=== PATIENT | female | born 1950 | race Caucasian/White ===

== ENCOUNTER 2023-09-28 08:34 | Observation (INO) | payer MEDICARE ==
[2023-09-23 11:12] LABS: BASOPHILS # (AUTO) 0.09 K/uL (0.00-0.20); BASOPHILS % (AUTO) 1.2 % (0.0-5.0); EOSINOPHILS # (AUTO) 0.23 K/uL (0.00-0.70); EOSINOPHILS % (AUTO) 3.1 % (0.0-8.0); HEMATOCRIT 45.5 % (36-48); IMMATURE GRANULOCYTE ABSOLUTE 0.02 K/uL (0-1); LYMPHOCYTES # (AUTO) 1.9 K/uL (1.0-4.8); LYMPHOCYTES % (AUTO) 26.1 % (21.0-51.0); MEAN CORPUSCULAR HEMOGLOBIN 29.8 pg (27.0-33.0); MEAN CORPUSCULAR HGB CONC 31.9 g/dL (32.0-36.0); MEAN CORPUSCULAR VOLUME 93.6 fL (79-99); MONOCYTES # (AUTO) 0.5 K/uL (0.1-1.0); MONOCYTES % (AUTO) 7.3 % (3.0-13.0); NEUTROPHILS # (AUTO) 4.6 K/uL (1.8-7.7); PLATELET COUNT (AUTO) 313 K/uL (130-400); RED BLOOD CELL COUNT(AUTO) 4.86 MIL/uL (4.00-5.50); WHITE BLOOD COUNT (AUTO) 7.4 K/uL (4.8-10.8)
[2023-09-23 11:21] VITALS: BP 163/79; PULSE 64; RESP 16
[2023-09-23 11:24] LABS: INR 0.94 (0.85-1.15); PROTHROMBIN TIME 10.9 SEC (9.6-11.6)
[2023-09-23 11:26] LABS: PARTIAL THROMBOPLASTIN TIME 33.1 SEC (26.3-35.5)
[2023-09-23 11:27] LABS: CREATININE 1.3 mg/dL (0.5-1.5); POTASSIUM 5.1 mmol/L (3.5-5.1)
[~2023-09-28] VITALS: Ht 170.2 cm; Wt 125.6 kg
[2023-09-28] VITALS (27 sets, daily range): BP systolic 83–152; BP diastolic 47–88; PULSE 53–82; RESP 12–24; O2SAT 95–98
[~2023-09-28 08:34] MED LIST: ALBU6.7H14 IH; AMLO-258 PO; ASPI-1443 PO; CARV25TA PO; DULO20CA18 PO; LISI40TA9 PO; SPIR25TA6 PO; TRAZ-187 PO; VENL25TA46 PO
[2023-09-28] MEDS: LACTATED RINGERS 1000ML 1,000 ML IV ONE (09:48)
[2023-09-28] MEDS: CLINDAMYCIN IVPB 600MG/50ML 50 ML IV ONE (09:49)
[2023-09-28] MEDS ORDERED: DEXAMETHASONE SOD PHOSPHATE 10MG/ML 1ML VIAL ONE (10:01)
[2023-09-28] MEDS ORDERED: ONDANSETRON 4MG INJ ONE (10:02)
[2023-09-28] MEDS ORDERED: PROPOFOL 10 MG/ML 20ML VIAL IV ONE (10:02)
[2023-09-28] MEDS ORDERED: LIDOCAINE PF 100MG/5ML (2%) SYRINGE 5ML ONE (10:02)
[2023-09-28] MEDS ORDERED: NEOSTIGMINE METHYLSULFATE 1MG/ML IV ONE (10:02)
[2023-09-28] MEDS ORDERED: SUCCINYLCHOLINE CHLORIDE 20 MG/ML 10 ML VIAL ONE (10:02)
[2023-09-28] MEDS ORDERED: ROCURONIUM BROMIDE 10MG/1ML 5ML VL ONE (10:02)
[2023-09-28] MEDS ORDERED: MIDAZOLAM HCL 1 MG/ML 2ML VIAL ONE (10:02)
[2023-09-28] MEDS ORDERED: GLYCOPYRROLATE 0.2 MG/ML 5 ML VIAL ONE (10:02)
[2023-09-28] MEDS ORDERED: FENTANYL CITRATE PF 50 MCG/1 ML 2ML VIAL ONE (10:03)
[2023-09-28] MEDS: BUPIVACAINE/PF 0.5% 30ML VIAL ONE (11:30)
[2023-09-28] MEDS ORDERED: ALBUHFA IH (11:35)
[2023-09-28] MEDS ORDERED: APIX5TAB PO (11:35)
[2023-09-28] MEDS ORDERED: ACET-2079 PO (11:41)
[2023-09-28] MEDS ORDERED: DOCU-116 PO (11:41)
[2023-09-28] MEDS: SUGAMMADEX SODIUM 200 MG/2 ML VIAL IV ONE (11:47)
[2023-09-28] MEDS: IPRATROPIUM/ALBUTEROL SULFATE 3 ML SOLUTION IH ONE (12:24)
[2023-09-28] MEDS: HYDROMORPHONE 1 MG INJ ONE (12:25)
[2023-09-28 15:37] LABS: ABG BASE EXCESS -0.9 mmol/L (-2.0-3.0); ABG HCO3 25.8 mmol/L (21.0-28.0); ABG OXYGEN SATURATION 90.5 % (95.0-99.0); ABG PCO2 50 mmHg (32-45); ABG PH 7.329 (7.35-7.450); PO2, ARTERIAL BG 63.3 mmHg (83.0-108.0); VENT MODE, BG RA (ROOM AIR)
[2023-09-28] MEDS ORDERED: ALBUTEROL 0.083% 2.5 MG/3 ML INH IH PRN (16:00)
[2023-09-28] MEDS ORDERED: ACETAMINOPHEN 500 MG TABLET PO PRN (16:30)
[2023-09-28 18:31] LABS: BASOPHILS # (AUTO) 0.03 K/uL (0.00-0.20); BASOPHILS % (AUTO) 0.5 % (0.0-5.0); EOSINOPHILS # (AUTO) 0.01 K/uL (0.00-0.70); EOSINOPHILS % (AUTO) 0.2 % (0.0-8.0); HEMATOCRIT 42.3 % (36-48); IMMATURE GRANULOCYTE ABSOLUTE 0.03 K/uL (0-1); LYMPHOCYTES # (AUTO) 0.7 K/uL (1.0-4.8); LYMPHOCYTES % (AUTO) 10.5 % (21.0-51.0); MEAN CORPUSCULAR HEMOGLOBIN 29.7 pg (27.0-33.0); MEAN CORPUSCULAR HGB CONC 32.6 g/dL (32.0-36.0); MONOCYTES % (AUTO) 0.5 % (3.0-13.0); NEUTROPHILS # (AUTO) 5.5 K/uL (1.8-7.7); NEUTROPHILS % (AUTO) 87.8 % (40.0-77.0); PLATELET COUNT (AUTO) 296 K/uL (130-400); RED BLOOD CELL COUNT(AUTO) 4.65 MIL/uL (4.00-5.50); RED CELL DISTRIBUTION WIDTH 13.8 % (11.0-15.5); WHITE BLOOD COUNT (AUTO) 6.3 K/uL (4.8-10.8)
[2023-09-28 18:43] LABS: CREATININE 1.2 mg/dL (0.5-1.5); MAGNESIUM 1.6 mg/dL (1.80-2.40); POTASSIUM 4.9 mmol/L (3.5-5.1)
[2023-09-28] MEDS ORDERED: ACETAMINOPHEN WITH CODEINE 1 TAB TAB PO PRN (19:30)
[2023-09-28] MEDS: DOCUSATE SODIUM 100 MG CAP PO SCH (20:50)
[2023-09-28] MEDS: TRAZODONE HCL 100 MG TABLET PO SCH (20:50)
[2023-09-28] MEDS: FAMOTIDINE 20MG TAB PO SCH (20:50)
[2023-09-28] MEDS: CARVEDILOL 25 MG TABLET PO SCH (20:51)
[2023-09-28] MEDS: DULOXETINE 20 MG PO SCH (20:51)
[2023-09-29] VITALS (11 sets, daily range): BP systolic 109–143; BP diastolic 64–86; PULSE 53–105; RESP 16–22; O2SAT 93–98
[2023-09-29] MEDS ORDERED: POTASSIUM CHLORIDE 10% ELIXIR 20 MEQ/15 ML UDCUP PO PRN (01:00)
[2023-09-29] MEDS ORDERED: POTASSIUM CHLORIDE 20MEQ/100ML 100 ML IV PRN ×2 (01:00)
[2023-09-29] MEDS ORDERED: DEXTROSE 50%-WATER 50 ML DISP.SYRIN IV PRN (01:00)
[2023-09-29] MEDS ORDERED: KCL 20 MEQ ERTAB PO PRN (01:00)
[2023-09-29] MEDS ORDERED: GLUCAGON 1MG KIT 1 MG ML IM PRN (01:00)
[2023-09-29] MEDS: MAGNESIUM 2GM PREMIX 50ML 50 ML IV PRN (03:51)
[2023-09-29 07:11] LABS: ABG BASE EXCESS -2.1 mmol/L (-2.0-3.0); ABG HCO3 22.9 mmol/L (21.0-28.0); ABG OXYGEN SATURATION 93.9 % (95.0-99.0); ABG PCO2 40 mmHg (32-45); ABG PH 7.373 (7.35-7.450); PO2, ARTERIAL BG 70.6 mmHg (83.0-108.0); VENT MODE, BG RA (ROOM AIR)
[2023-09-29] MEDS: VENLAFAXINE HCL 25 MG PO SCH (09:00)
[2023-09-29] MEDS ORDERED: SPIRONOLACTONE 25 MG TAB PO SCH (09:00)
[2023-09-29] MEDS: AMLODIPINE 5 MG TAB PO SCH (10:28)
[2023-09-29] MEDS: APIXABAN 5 MG TABLET PO SCH (12:00)
[2023-09-29] MEDS ORDERED: NON-FORMULARY MEDICATION 1 EACH (Albuterol Sulfate (Ventolin Hfa/Proventil Hfa/Proair Hfa) IH PRN (12:30)
[2023-09-29] MEDS ORDERED: ACETAMINOPHEN WITH CODEINE 1 TAB TAB PO PRN (12:30)
[2023-09-29] MEDS: IPRATROPIUM/ALBUTEROL SULFATE 3 ML SOLUTION IH SCH (14:28)
[2023-09-29] MEDS ORDERED: APIXABAN 5 MG TABLET PO SCH (21:00)
== END 2023-09-29 20:54 | disposition home or self-care (01) ==
LOC: DAH 08:34 → DAHIP 08:35 → 3CH 17:45
PROVIDERS: ADMIT Internal Medicine; ATTEND Internal Medicine
DX: L98.9 Disorder of the skin and subcutaneous tissue, unspecified (principal); J98.6 Disorders of diaphragm; J95.821 Acute postprocedural respiratory failure; E87.29 Other acidosis; G47.33 Obstructive sleep apnea (adult) (pediatric); F39 Unspecified mood [affective] disorder; M79.605 Pain in left leg; I10 Essential (primary) hypertension; E66.9 Obesity, unspecified; Z86.718 Personal history of other venous thrombosis and embolism; Z79.01 Long term (current) use of anticoagulants; Z85.828 Personal history of other malignant neoplasm of skin; Z87.891 Personal history of nicotine dependence; Z96.652 Presence of left artificial knee joint; Z96.642 Presence of left artificial hip joint; Z79.899 Other long term (current) drug therapy; Z79.82 Long term (current) use of aspirin; Z68.41 Body mass index [BMI] 40.0-44.9, adult
CPT/HCPCS: 80048 ×2; 85025 ×2; 85610; 85730; 36415 ×3; 93005; 94664; 36600 ×2; 27337; 83036; 84443; 83735; 82803 ×2; 88305; 71045 ×2; 94640 ×2; 96374; 94760 ×2; 83880; 78580; 93306; 93970; 84145; A6260; A4600; A4663; J7120; J3010; J1170; J1100; J0330; J3490 ×3; J2001; J2250; J2704; J2405; J2710; J0665; C1729; A4215; A4223; A4222; A4221; G0378 ×8; J3475; A9540